=== PATIENT | female | born 1965 | race Caucasian/White ===

== ENCOUNTER 2018-02-10 12:54 | Outpatient (CLI) | payer OTHER ==
--- NOTE | 2018-02-18 15:37 | MMO ---
BILATERAL MAMMOGRAMS: HISTORY: Screening mammography. COMPARISON: Multiple exams back to 11/07/14. FINDINGS: Extremely dense fibroglandular tissue throughout each breast decreases sensitivity of exam. Bilatera l breast implants are stable. No new dominant mass or suspicious calcifications. The study was eval uated with the assistance of computer-aided detection. IMPRESSION: BI-RADS category 2. Benign findings. Suggest routine followup. BIRADS 2: Benign Finding(s) Routine annual screening mammography (for women over age 40) POS: [facility]
== END 2018-02-10 12:55 | disposition home or self-care (01) ==
LOC: SCSMAMMO 12:54
PROVIDERS: ATTEND Family Medicine
DX: Z12.31 Encounter for screening mammogram for malignant neoplasm of breast (principal)
CPT/HCPCS: 77067

== ENCOUNTER 2018-06-24 10:55 | Observation (INO) | payer OTHER ==
--- NOTE | 2018-06-24 11:46 | RAD ---
CHEST ONE VIEW: History: Chest pain Comparison: None. FINDINGS: Lungs are clear. No pneumothorax or effusion. Cardiac silhouette and mediastinal contour is within no rmal limits. IMPRESSION: No acute thoracic abnormality. POS: [facility]
[2018-06-24 12:02] LABS: #Basophils 0.1 thou/uL (0.0-0.2); #Lymphocytes 0.4 thou/uL (1.20-3.40); #Monocytes 0.3 thou/uL (0.11-0.59); #Neutrophils 3.7 thou/uL (1.40-6.50); %Basophils 1.9 % (0.0-1.0); %Eosinophils 0.9 % (0.0-10.0); %Lymphocytes 9.5 % (21.0-51.0); %Monocytes 6.1 % (0.0-10.0); %Neutrophils 81.6 % (42.0-75.0); Mean Corpuscular HGB CONC 34.3 g/dL (32.0-36.0); Mean Corpuscular Hemoglobin 30.7 pg (27.0-31.0); Mean Corpuscular Volume 89.7 fL (78.0-98.0); Mean Platelet Volume 7.1 fL (7.4-10.4); Platelet Count 205 thou/uL (130-400); RBC Distribution Width 12.1 % (11.5-14.5); Red Blood Cell (RBC) Count 4.88 mill/uL (4.20-5.40); White Blood Cell (WBC) Count 4.5 thou/uL (4.8-10.8)
[2018-06-24 12:27] LABS: ALT (SGPT) 12 U/L (8-55); AST (SGOT) 20 U/L (5-34); Albumin 4.8 g/dL (3.5-5.0); Alkaline Phosphatase 51 U/L (40-150); Anion Gap 11 mmol/L (10-20); BUN (Urea Nitrogen) 11 mg/dL (7.0-18.7); Bilirubin, Total 0.5 mg/dL (0.2-1.2); CK (CPK) 74 U/L (29-168); Calc. Creatinine Clearance 0 mL/min (70-130); Calcium 9.8 mg/dL (7.8-10.44); Carbon Dioxide 25 mmol/L (22-29); Chloride 106 mmol/L (98-107); Estimated GFR-MDRD 61; Globulin 3.2 g/dL (2.4-3.5); Glucose 79 mg/dL (70-105); Lipase 68 U/L (8-78); Potassium 3.9 mmol/L (3.5-5.1); Sodium 138 mmol/L (136-145)
[2018-06-24 12:35] LABS: CKMB 0.8 ng/mL (0-6.6); Troponin I Less than 0.010 ng/mL (< 0.028)
[2018-06-24 13:28] LABS: Bilirubin Negative (Negative); Blood, Urine Negative (Negative); Clarity CLEAR (Clear); Glucose, Urine (Dipstick) Negative (Negative); Leukocyte Negative (Negative); Nitrite Negative (Negative); Protein, Urine (Dipstick) Negative (Neg-Trace); Specific Gravity, Urine 1.004 (1.002-1.036); Urobilinogen 0.2 mg/dL (0.2-1.0); pH, Urine 7.5 (5.0-9.0)
[2018-06-24] MEDS ORDERED: Meclizine HCl 25 MG TAB ONE (13:46)
[2018-06-24] MEDS ORDERED: Ondansetron HCl/PF 4 MG/2 ML Vial ONE ×2 (14:08→15:26)
--- NOTE | 2018-06-24 15:21 | CT ---
CT OF THE BRAIN WITHOUT CONTRAST: Date: 06/24/18 INDICATION: Intermittent syncopal episodes. COMPARISON: None. FINDINGS: No acute infarct, hemorrhage, or hydrocephalus is present. Septum pellucidum and third ventricle are midline. The skull and extracranial soft tissues are unremarkable. IMPRESSION: No acute intracranial abnormality. POS: [facility]
--- NOTE | 2018-06-24 16:17 | HP ---
PRIMARY CARE PHYSICIAN: Dr. Katerina Caro. REASON FOR ADMISSION: Dizziness, vertigo. HISTORY OF PRESENT ILLNESS: A 52-year-old female who has underlying history of lupus. 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 The patient is recently prescribed methylprednisolone by [facility] physician because the patient was feeling lupus flare. She was lately feeling dizziness for t he last 3-4 days which was keep getting worse. She was feeling dizziness and nausea sensation whenev er she was changing her position of her head as well as whenever she was keeping her eyes open. She was feeling comfortable in eyes closed position. She denies any headaches. She denies any unsteadin ess. She denies any focal weakness, but she was feeling more tingling and numbness sensation on the left side. The patient also reported that she was feeling tingling and numbness sensation in both si sameer, but predominantly on the left side. She denies any loss of consciousness. She denies any fall. She denies any trauma. She denies any constipation, diarrhea, melena, hematochezia. She denies an y UTI symptoms. Per patient, her blood pressure was low and primary care physician was concerned about dehydration. PAST MEDICAL HISTORY: History of lupus. PAST SURGICAL HISTORY: Right below-knee amputation. PAST PSYCHIATRIC HISTORY: Reviewed and negative. SOCIAL HISTORY: The patient is , drinks alcohol socially. Denies any smoking, denies any oth er illicit drug abuse. FAMILY HISTORY: No strong family history of premature coronary artery disease, stroke or cancer. ALLERGIES: ANCEF, CODEINE, IV CONTRAST, MORPHINE, SULFA. CURRENT HOME MEDICATIONS: Xeljanz 5 mg daily, Medrol 8 mg daily. REVIEW OF SYSTEMS: Please see my HPI for pertinent positive and negative. All other review of syste ms reviewed and negative except as mentioned in the HPI. Constitutional: Weight loss or gain, ability to conduct usual activities. Skin: Rash, itching. Eyes: Double vision, pain. ENT/Mouth: Nose bleeding, neck stiffness, pain, tenderness. Cardiovascular: Palpitations, dyspnea on exertion, orthopnea. Respiratory: Shortness of breath, wheezing, cough, hemoptysis, fever or night sweats. Gastrointestinal: Poor appetite, abdominal pain, heartburn, nausea, vomiting, constipation, or diarrhea. Genitourinary: Urgency, frequency, dysuria, nocturia. Musculoskeletal: Pain, swelling. Neurologic/Psychiatric: Anxiety, depression. Allergy/Immunologic: Skin rash, bleeding tendency. EMERGENCY ROOM COURSE: The patient is given meclizine 25 mg and Zofran 4 mg. PHYSICAL EXAMINATION: VITAL SIGNS: On arrival, blood pressure 121/82, pulse 69, respiratory rate 16, temperature 98.1, sat uration 100% on room air, weight 50 kilograms. GENERAL: The patient is currently alert, awake, no obvious acute distress. HEAD: Normocephalic, atraumatic. EYES: Pupils round, reactive to light. Extraocular muscle intact. Horizontal nystagmus noted on th e left side. ENT: Oropharynx within normal limits. Moist mucous membranes. No oral lesion. No pharyngeal eryth bijan, no exudate. NECK: Supple, no JVD, no thyromegaly, no carotid bruit. LUNGS: Clear to auscultation without any rhonchi or rales. CARDIAC: S1, S2 regular. No murmur, no gallop, no rub. ABDOMEN: Soft, bowel sounds present, nontender, nondistended. No organomegaly, no mass, no suprapub ic tenderness. BACK: Unremarkable, no CVA tenderness. EXTREMITIES: Upper extremity: Passive movement of all joints are normal. Lower extremity: No belen a. Right below-knee amputation noted. NEUROLOGIC: Horizontal nystagmus noted on the left side, otherwise motor is 5/5 in all four limbs. Sensation bilaterally symmetrical. Reflexes symmetrical on the left side. Speech normal. SKIN: No skin rash. HEMATOLOGICAL: No lymphadenopathy. PSYCHIATRIC: Normal affect. SIGNIFICANT LABORATORY DATA: EKG showing normal sinus rhythm, left atrial enlargement. CT brain bas ed on my review, no acute intracranial process. CBC: WBC 4.5, hemoglobin 15.0, platelet 205. BMP: Sodium 138, potassium 3.9, chloride 106, carbon dioxide 25, anion gap 11, BUN 11, creatinine 0.97 an d glucose 79, calcium 9.8. LFT: AST 20, ALT 12, alkaline phosphatase 51, albumin 4.8, lipase 68. C ardiac enzymes: CK 374, CK-MB 0.8, troponin I less than 0.010. Urinalysis normal. ASSESSMENT AND PLAN: 1. Vertigo/dizziness. The patient description is a positional vertigo, most likely peripheral etiol ogy, but central etiology needs to be excluded given her history of lupus. We will treat her with An tivert 25 mg q.8 hourly scheduled. We will obtain MRI brain to rule out any intracranial process as well as we will also obtain echocardiography and carotid Doppler. We will also check orthostatic vit als and we will monitor on telemetry floor for any kind of arrhythmias. We will also give her NS at 75 mL per hour overnight. We will check random cortisol level as well given her history of lupus. 2. Lupus. The patient will continue her home medication for lupus Xeljanz 5 mg daily. 3. Deep venous thrombosis prophylaxis not needed because we are expecting discharge in 24 hours. 4. Gastrointestinal prophylaxis, Pepcid 20 mg p.o. b.i.d. 5. Code status: The patient is FULL CODE. Disposition plan based on clinical course, most likely the patient will be discharged home tomorrow i f all workup is negative. We will also get opinion from Neurology as well.
[2018-06-24 17:07] LABS: Troponin I Less than 0.010 ng/mL (< 0.028)
[2018-06-24] MEDS ORDERED: Ondansetron ODT 4 MG TAB PO PRN (17:44)
[2018-06-24] MEDS ORDERED: Acetaminophen 325 MG TAB PO PRN (17:44)
[2018-06-24] MEDS ORDERED: Milk Of Magnesia 30 ML UDCUP PO PRN (17:44)
[2018-06-24] MEDS ORDERED: Loratadine 10 MG TAB PO PRN (17:44)
[2018-06-24] MEDS ORDERED: Loperamide HCl 2 MG CAP PO PRN (17:44)
[2018-06-24] MEDS ORDERED: Zolpidem Tartrate 5 MG TAB PO PRN (17:44)
[2018-06-24] MEDS ORDERED: Chloraseptic Spray 180 ml Bottle PO PRN (17:44)
[2018-06-24] MEDS ORDERED: HYDROcodone/Acetaminophen 5/325 mg Tablet PO PRN (17:44)
[2018-06-24] MEDS ORDERED: Senokot 8.6 MG TAB PO PRN (17:44)
[2018-06-24] MEDS ORDERED: hydrALAZINE 20 MG/ML VIAL SLOW IVP PRN (17:44)
[2018-06-24] MEDS ORDERED: Artificial Tears 18 DROP/0.9 ML EA EYE PRN (17:44)
[2018-06-24] MEDS ORDERED: Sodium Chloride 0.65% Nasal 44 ML BOT EA NARE PRN (17:44)
[2018-06-24] MEDS ORDERED: Mag-Al 1200 mg/1200 mg/30 ML UDCUP PO PRN (17:44)
[2018-06-24] MEDS ORDERED: Diabetic Tussin 200 MG/10 ML UDCUP PO PRN (17:44)
[2018-06-24] MEDS ORDERED: Eucerin (Mineral Oil/Petrolatum,White) 30 gm Jar TOP PRN (17:44)
[2018-06-24 18:30] VITALS: BMI 19.8
[2018-06-24 19:25] LABS: Troponin I Less than 0.010 ng/mL (< 0.028)
[2018-06-24] MEDS: Meclizine HCl 25 MG TAB PO SCH (20:38)
[2018-06-24] MEDS: Sodium Chloride 0.9% 1,000 ML IV SCH (20:38)
[2018-06-24] MEDS: Famotidine 20 MG TAB PO SCH (20:38)
[2018-06-24 21:55] LABS: Troponin I Less than 0.010 ng/mL (< 0.028)
[2018-06-25 05:25] LABS: #Eosinphils 0.2 thou/uL (0.0-0.7); #Lymphocytes 0.7 thou/uL (1.20-3.40); #Monocytes 0.4 thou/uL (0.11-0.59); %Basophils 0.7 % (0.0-1.0); %Eosinophils 3.5 % (0.0-10.0); %Lymphocytes 16.4 % (21.0-51.0); %Monocytes 9.9 % (0.0-10.0); %Neutrophils 69.5 % (42.0-75.0); Hemoglobin 13.3 g/dL (12.0-16.0); Mean Corpuscular HGB CONC 35.1 g/dL (32.0-36.0); Mean Corpuscular Hemoglobin 31.5 pg (27.0-31.0); Mean Corpuscular Volume 89.7 fL (78.0-98.0); Mean Platelet Volume 7.9 fL (7.4-10.4); Platelet Count 163 thou/uL (130-400); RBC Distribution Width 12.1 % (11.5-14.5); Red Blood Cell (RBC) Count 4.22 mill/uL (4.20-5.40); White Blood Cell (WBC) Count 4.4 thou/uL (4.8-10.8)
[2018-06-25 05:36] LABS: Anion Gap 11 mmol/L (10-20); BUN (Urea Nitrogen) 10 mg/dL (7.0-18.7); Calc. Creatinine Clearance 65 mL/min (70-130); Calcium 8.7 mg/dL (7.8-10.44); Carbon Dioxide 24 mmol/L (22-29); Cardiac Risk 2.6 (Less than 4.5); Chloride 107 mmol/L (98-107); Cholesterol 149 mg/dl (< 200 Desired); Estimated GFR-MDRD 62; Glucose 73 mg/dL (70-105); HDL Cholesterol 58 mg/dL (>60 Neg Risk); LDL Cholesterol, Calculated 77 mg/dL; Potassium 3.6 mmol/L (3.5-5.1); Sodium 138 mmol/L (136-145); Triglycerides 69 mg/dL (Less than 150)
[2018-06-25] MEDS: Meclizine HCl 25 MG TAB PO SCH ×3 (05:48→21:22)
[2018-06-25] MEDS: Ondansetron HCl/PF 4 MG/2 ML Vial IVP PRN ×3 (08:28→20:06)
--- NOTE | 2018-06-25 09:14 | ULT ---
CAROTID DOPPLER: Ultrasound Doppler study is performed on the extracranial carotid arteries. Color Doppler with spect ral analysis and velocity recordings obtained. INDICATION: Syncope. FINDINGS: Ultrasound images show no significant plaque or abnormal thickening. Velocity recordings are normal bilaterally. There is no evidence of stenosis identified in either ex tracranial carotid system. The vertebral arteries show antegrade flow. IMPRESSION: 1. No evidence of echogenic plaque. 2. No evidence of stenosis. POS: [facility]
[2018-06-25] MEDS: Famotidine 20 MG TAB PO SCH ×2 (09:31→21:22)
[2018-06-25] MEDS ORDERED: Cosyntropin 250 MCG VIAL SLOW IVP SCH (10:00)
--- NOTE | 2018-06-25 10:57 | PDOC.PN ---
- Subjective Encounter Start Date: 06/25/18 Encounter Start Time: 08:20 -: old records requested/rev Patient seen and examined. No new complaints. No overnight events - Objective Resuscitation Status: Resuscitation Status FULL:Full Resuscitation MAR Reviewed: Yes Vital Signs & Weight: Vital Signs (12 hours) Temp Pulse Resp BP BP BP BP 06/25/18 08:43 97.8 F 66 16 127/66 125/73 125/73 06/25/18 08:00 97.8 F 66 16 06/25/18 03:26 97.8 F 56 L 16 115/58 L Pulse Ox 06/25/18 08:43 100 06/25/18 08:00 06/25/18 03:26 98 Weight Weight 130 lb 7 oz I&O: 06/24/18 06/25/18 06/26/18 06:59 06:59 06:59 Intake Total 916 Output Total 400 800 Balance 516 -800 Result Diagrams: 06/25/18 04:10 06/25/18 04:09 Radiology Reviewed by me: Yes EKG Reviewed by me: Yes Phys Exam - Physical Examination Constitutional: NAD HEENT: PERRLA, moist MMs, sclera anicteric Neck: no JVD, supple Respiratory: no wheezing, no rales, no rhonchi Cardiovascular: RRR, no significant murmur, no rub Gastrointestinal: soft, non-tender, no distention, positive bowel sounds Musculoskeletal: no edema, pulses present Neurological: non-focal, normal sensation, moves all 4 limbs Psychiatric: normal affect, A&O x 3 Skin: no rash, normal turgor Dx/Plan (1) Vertigo Code(s): R42 - DIZZINESS AND GIDDINESS Status: Acute (2) Lupus (systemic lupus erythematosus) Code(s): M32.9 - SYSTEMIC LUPUS ERYTHEMATOSUS, UNSPECIFIED Status: Chronic - Plan cont current plan of care * medication reviewed as below * symptomatic treatment * cosyntropin stim test * will discharge when all investigation done. * see my discharge summery Review of Systems - Review of Systems ENT: negative: Ear Pain, Ear Discharge, Nose Pain, Nose Discharge, Nose Congestion, Mouth Pain, Mouth Swelling, Throat Pain, Throat Swelling, Other Respiratory: negative: Cough, Dry, Shortness of Breath, Hemoptysis, SOB with Excertion, Pleuritic Pain, Sputum, Wheezing Cardiovascular: negative: chest pain, palpitations, orthopnea, paroxysmal nocturnal dyspnea, edema, light headedness, other Gastrointestinal: negative: Nausea, Vomiting, Abdominal Pain, Diarrhea, Constipation, Melena, Hematochezia, Other Genitourinary: negative: Dysuria, Frequency, Incontinence, Hematuria, Retention , Other Musculoskeletal: negative: Neck Pain, Shoulder Pain, Arm Pain, Back Pain, Hand Pain, Leg Pain, Foot Pain, Other Skin: negative: Rash, Lesions, Bonifacio, Bruising, Other - Medications/Allergies Allergies/Adverse Reactions: Allergies Allergy/AdvReac Type Severity Reaction Status Date / Time cefazolin [From [facility]] Allergy Verified 06/24/18 18:22 codeine Allergy Verified 06/24/18 18:22 iodine Allergy Verified 06/24/18 18:22 morphine Allergy Verified 06/24/18 18:21 Sulfa (Sulfonamide Allergy Verified 06/24/18 18:22 Antibiotics) Medications: Current Medications Acetaminophen (Tylenol) 650 mg PO Q4H PRN PRN Reason: Headache/Fever or Pain Hydrocodone Bitart/Acetaminophen (Hegins 5/325) 1 tab PO Q4H PRN PRN Reason: Moderate Pain (4-6) Al Hydroxide/Mg Hydroxide (Maalox) 30 ml PO Q6H PRN PRN Reason: Heartburn or Indigestion Artificial Tears (Tears Naturale) 0 drop EA EYE PRN PRN PRN Reason: Dry Eyes Aspirin (Aspirin Chewable) 81 mg PO DAILY [facility] Last Admin: 06/25/18 09:32 Dose: 81 mg Cosyntropin (Cortrosyn) 250 mcg SLOW IVP WILLCALL [facility] Last Admin: 06/25/18 10:47 Dose: 250 mcg Famotidine (Pepcid) 20 mg PO BID [facility] Last Admin: 06/25/18 09:31 Dose: 20 mg Guaifenesin (Robitussin Sf) 200 mg PO Q4H PRN PRN Reason: Cough Hydralazine HCl (Apresoline) 10 mg SLOW IVP Q4H PRN PRN Reason: Systolic BP > 180 Sodium Chloride (Normal Saline 0.9%) 1,000 mls @ 75 mls/hr IV .[id number] [facility] Last Admin: 06/24/18 20:38 Dose: 1,000 mls Loperamide HCl (Imodium) 2 mg PO PRN PRN PRN Reason: Diarrhea/Loose Stools Loratadine (Claritin) 10 mg PO DAILYPRN PRN PRN Reason: Sinus Symptoms Magnesium Hydroxide (Milk Of Magnesium) 30 ml PO DAILYPRN PRN PRN Reason: Constipation Meclizine HCl (Antivert) 25 mg PO Q8HR [facility] Last Admin: 06/25/18 05:48 Dose: 25 mg Mineral Oil/White Petrolatum (Eucerin Cream) 0 gm TOP BIDPRN PRN PRN Reason: Dry Skin Ondansetron HCl (Zofran Odt) 4 mg PO Q6H PRN PRN Reason: Nausea/Vomiting Ondansetron HCl (Zofran) 4 mg IVP Q6H PRN PRN Reason: Nausea/Vomiting Last Admin: 06/25/18 08:28 Dose: 4 mg Phenol (Chloraseptic [place] 180 Ml Bot) 0 ml PO PRN PRN PRN Reason: Sore Throat Senna (Senokot) 2 tab PO HSPRN PRN PRN Reason: Constipation Sodium Chloride (Alexander Nasal [place] 0.65%) 0 ml EA NARE QIDPRN PRN PRN Reason: Nasal Congestion Zolpidem Tartrate (Ambien) 5 mg PO HSPRN PRN PRN Reason: Insomnia
--- NOTE | 2018-06-25 11:04 | DIS ---
DATE OF ADMISSION: 06/24/2018 DATE OF DISCHARGE: 06/25/2018 PRIMARY CARE PHYSICIAN: Rocio Caro M.D. DISCHARGE DISPOSITION: Home. PRIMARY DISCHARGE DIAGNOSIS: Dizziness/vertigo. SECONDARY DISCHARGE DIAGNOSIS: Lupus. PRIMARY PROCEDURE/OPERATION: None. RADIOLOGICAL INVESTIGATION: Chest x-ray normal. CT brain normal. Carotid Doppler normal. SIGNIFICANT LABORATORY DATA: WBC 4.4, hemoglobin 13.3, platelet 163. Sodium 138, creatinine 0.96. Electrolytes normal. LFT normal. Cardiac enzymes negative x3. LDL 77. Cortisol 2.90. Lipase 68. Urinalysis normal. DISCHARGE MEDICATIONS: Cetirizine 10 mg p.o. at bedtime, Medrol 8 mg p.o. daily, 5 mg p.o. at bedtime, Antivert 25 mg q.8 hourly p.r.n., aspirin 81 mg p.o. daily, Pepcid 20 mg p.o. b.i.d. CONTRAINDICATIONS: None. CODE STATUS: FULL CODE. INPATIENT PRESIDENT AND CHIEF COMMERCIAL OFFICER: Neurology. TEST RESULTS PENDING ON DISCHARGE: ACTH stim test, MRI brain, echocardiography. DISCHARGE PLAN: Post hospital, patient is instructed to follow up with Rheumatology. The patient is also instructed to make appointment with Endocrinology for adrenal insufficiency evaluation and the patient is advised to follow up with primary care physician. HOSPITAL COURSE: A 52-year-old female who was admitted by me. Please see my HPI for further details . The patient was having dizziness for the last week or two. She was feeling in lying down position better, change in position was making her dizziness worse. Her presentation was atypical. Her elec trocardiogram was normal. CT brain was normal. Chest x-ray was normal. Routine blood test was also unremarkable. She had random cortisol level 2.90 and that is why we are doing ACTH stim test today to rule out adrenal insufficiency, but the patient is already on steroid therapy and she has underlyi ng lupus so secondary adrenal insufficiency is possible and that is why we advised this patient to fo llow up with Endocrinology as an outpatient basis for more evaluation if needed. We also treated sym ptomatically with Antivert while in hospital and advised to use as needed basis only for dizziness. For dizziness workup we did MRI brain, echocardiography, official report is pending by the time of di ctation. If those tests are normal, and if a ACTH stim test is normal, then we will consider dischar ging her later on today. The patient is checked for orthostatic vitals, which were normal. Telemetry remained unremarkable. The patient's symptomatology is improved. The patient is seen and examined at bedside today. PHYSICAL EXAMINATION: VITAL SIGNS: Currently, temperature 97.8, pulse 60, respiratory rate 16, saturation 100% on room air , blood pressure 127/66, weight 130 pounds. GENERAL: The patient is currently alert, awake, no obvious acute distress. HEAD: Normocephalic, atraumatic. EYES: Pupils round, reactive to light. Extraocular muscle intact. ENT: Oropharynx within normal limit. Moist mucous membranes. No oral lesion, no pharyngeal erythem a, no exudate. NECK: Supple, no JVD, no thyromegaly, no carotid bruit. No jugular venous distention. LUNGS: Clear to auscultation without any rhonchi or rales. CARDIAC: S1, S2 regular without any murmur. ABDOMEN: Soft and benign without any tenderness. EXTREMITIES: No edema. NEUROLOGIC: Nonfocal examination. No cerebellar signs. The patient most likely will be discharged home later on today with outpatient followup with Endocrin ology and primary care physician as well as primary telegraph inspector.
[2018-06-25] MEDS: Sodium Chloride 0.9% 1,000 ML IV SCH ×2 (12:30→21:23)
--- NOTE | 2018-06-25 13:24 | CON ---
DATE OF CONSULTATION: 06/25/2018 CHIEF COMPLAINT: Vertigo. HISTORY OF PRESENT ILLNESS: The patient is a 52-year-old right-handed lady, who sees her glass curvature gauger, Dr. Cohen, in [place], [place], for her lupus. The patient has been on methylprednisone. They are trying to switch her to cyclosporine, and she was also on Zeljanz in the past and she has reported dizziness for at least 2 weeks now and she woke up one day and she felt everything was spinning and she could not differentiate between sensation of spinning of self versus surroundings, and she has passed out 3 times so far in the last 12 days and it is described as a sensation of everything spinning and then she blacks out, and she is out for a few minutes and she finds herself on the floor. She has been uncomfortable with nausea and she has some headache on the left side of the head, and she also wondered whether she has any kind of sinus infection or ear infection. She has been having tingling and numbness mostly on the left side of the body, and there is no history of any recent infection. PAST MEDICAL HISTORY: She has had a history of lupus for a number of years and she has been treated for lupus in [place]. A recent history of hypotension. PAST SURGICAL HISTORY: She has had right leg amputation following an injury. She fell from a ladder and she had 12 surgeries on the right leg, and finally, they had to do a below-knee amputation, and she wears a prosthesis. FAMILY HISTORY: Positive for lupus in her mother, who is now in her 70s, and she has severe lupus. SOCIAL HISTORY: She lives with her . Nonsmoker. Alcohol, drinks socially. ALLERGIES: She is allergic to ANCEF, CODEINE, IV CONTRAST with IODINE, and MORPHINE and SULFA DRUGS. CURRENT MEDICATIONS: She is off of Zeljanz recently, and she is on methylprednisone. They are considering cyclosporine at this time. She had extensive workup with her primary glass curvature gauger as well. REVIEW OF SYSTEMS: Pulmonary: Negative for any shortness of breath or cough. Cardiovascular: Negative for any chest pains. Rheumatologic: Positive for joint pains and fatigue and lupus. Dermatologic: Negative for any skin lesions. Neurologic: Positive for tingling on the left side of the body and some headache and vertigo. ENT: Negative for any ear problems. LABORATORY WORKUP: White count 4.4, hemoglobin 13.3, hematocrit 37.8, platelets 163. Sodium 138, potassium 3.6, bicarbonate 107, BUN 11, creatinine 10, and cholesterol panel within normal limits. UA negative, and her CT scan of the head was negative with no acute intracranial abnormality and carotid Doppler is negative for any plaques. PHYSICAL EXAMINATION: VITAL SIGNS: Blood pressure 114/66, pulse is 65, temperature 97.6, respiratory rate 18. GENERAL APPEARANCE: A well-built, well-nourished lady, who seems to be uncomfortable, and even during my examination, she got up once to try to throw up and she also looked uncomfortable when she was looking, but following my finger during my extraocular muscle exam. ABDOMEN: Soft, nontender, no organomegaly noted. NEUROLOGICAL EXAM: Higher intellectual functions. Normal orientation to time, place, and person. Cranial nerves II-XII normal extraocular movements. Normal sensation of face bilaterally, normal visual prince by confrontation method, normal pupillary reaction to light and accomodation, no facaial asymmetry, normal hearing to finger rub bilaterally, normal elevation of palate, tongue midline no atrophy noted. Motor Examination: Bulk normal, tone normal, strength 5/5 in upper extremities in deltoid, biceps, triceps, wrist extension/ flexion, finger extension and flexion bilaterally. The right leg was not examined due to her amputation. Left leg exam is 5/5 in strength in iliopsoas, hamstrings, quadriceps, ankle dorsiflexion, and plantar flexion. Sensory: Normal to touch, pinprick, proprioception, vibration in both upper extremities and left lower extremity. Cerebellar: Normal [id number]. [id number] was not tested. Gait not tested. IMPRESSION: Patient is a 52-year-old lady with symptoms, which are suggestive of peripheral vertigo, which is rather severe, and there seems to be no pattern to this. However, she feels she has passed out on 3 occasions. Her neurological examination is essentially normal at this time. Due to her lupus, she may have underlying central nervous system vasculitis, which needs to be explored, but symptoms and examination is more suggestive of a peripheral vertigo such as acute vestibular neuronitis. Diagnosis is most consistent with peripheral vertigo. RECOMMENDATIONS: 1. MRI of the brain and I will review the scan. 2. Please consult ENT for any additional issues. 3. If meclizine is not helpful, we can start her on scopolamine patch. 4. I will follow up the patient with you. YOSSI
--- NOTE | 2018-06-25 16:51 | MRI ---
MRI BRAIN WITH AND WITHOUT IV CONTRAST: 06/25/18 HISTORY: Syncope, vertigo. Patient complains of severe vertigo with changing of position resulting in nausea. Patient is sensitive to light. FINDINGS: No signal abnormalities are seen throughout the brain. There is no evidence of an acute infarction. N o abnormal areas of enhancement are seen after the administration of intravenous contrast. The septum pellucidum and third ventricle are in the midline. The ventricular system is normal in size, shape a nd position. There is minimal mucosal thickening seen within the ethmoidal air cells. Remainder of the paranasal s inuses are clear. The orbits and skull base have a normal MRI appearance. IMPRESSION: No acute intracranial abnormalities demonstrated. POS: [facility]
[2018-06-26] MEDS: Sodium Chloride 0.9% 1,000 ML IV SCH (02:46)
[2018-06-26] MEDS: Meclizine HCl 25 MG TAB PO SCH (06:02)
[2018-06-26 08:08] VITALS: BP 117/63; TEMP 98.4
[2018-06-26] MEDS: Famotidine 20 MG TAB PO SCH (08:53)
--- NOTE | 2018-06-26 10:50 | PDOC.PN ---
- Subjective Encounter Start Date: 06/26/18 Encounter Start Time: 07:50 Patient seen and examined. No new complaints. No overnight events - Objective Resuscitation Status: Resuscitation Status FULL:Full Resuscitation MAR Reviewed: Yes Vital Signs & Weight: Vital Signs (12 hours) Temp Pulse Resp BP BP Pulse Ox 06/26/18 08:50 98.4 F 62 16 06/26/18 07:17 98.4 F 62 16 117/63 98 06/26/18 02:46 98.6 F 65 14 98/50 L 96 Weight Weight 132 lb 1.6 oz I&O: 06/25/18 06/26/18 06/27/18 06:59 06:59 06:59 Intake Total 916 1974 480 Output Total 400 1620 Balance 516 354 480 Result Diagrams: 06/25/18 04:10 06/25/18 04:09 Radiology Reviewed by me: Yes EKG Reviewed by me: Yes Phys Exam - Physical Examination Constitutional: NAD HEENT: PERRLA, moist MMs, sclera anicteric Neck: no JVD, supple Respiratory: no wheezing, no rales, no rhonchi Cardiovascular: RRR, no significant murmur, no rub Gastrointestinal: soft, non-tender, no distention, positive bowel sounds Musculoskeletal: no edema, pulses present Neurological: non-focal, normal sensation, moves all 4 limbs Psychiatric: normal affect, A&O x 3 Skin: no rash, normal turgor Dx/Plan (1) Vertigo Code(s): R42 - DIZZINESS AND GIDDINESS Status: Acute (2) Lupus (systemic lupus erythematosus) Code(s): M32.9 - SYSTEMIC LUPUS ERYTHEMATOSUS, UNSPECIFIED Status: Chronic - Plan cont current plan of care * medication reviewed as below * symptomatic treatment * see my discharge summery. Review of Systems - Review of Systems ENT: negative: Ear Pain, Ear Discharge, Nose Pain, Nose Discharge, Nose Congestion, Mouth Pain, Mouth Swelling, Throat Pain, Throat Swelling, Other Respiratory: negative: Cough, Dry, Shortness of Breath, Hemoptysis, SOB with Excertion, Pleuritic Pain, Sputum, Wheezing Cardiovascular: negative: chest pain, palpitations, orthopnea, paroxysmal nocturnal dyspnea, edema, light headedness, other Gastrointestinal: negative: Nausea, Vomiting, Abdominal Pain, Diarrhea, Constipation, Melena, Hematochezia, Other Genitourinary: negative: Dysuria, Frequency, Incontinence, Hematuria, Retention , Other Musculoskeletal: negative: Neck Pain, Shoulder Pain, Arm Pain, Back Pain, Hand Pain, Leg Pain, Foot Pain, Other - Medications/Allergies Allergies/Adverse Reactions: Allergies Allergy/AdvReac Type Severity Reaction Status Date / Time cefazolin [From [facility]] Allergy Verified 06/24/18 18:22 codeine Allergy Verified 06/24/18 18:22 iodine Allergy Verified 06/24/18 18:22 morphine Allergy Verified 06/24/18 18:21 Sulfa (Sulfonamide Allergy Verified 06/24/18 18:22 Antibiotics) Medications: Current Medications Acetaminophen (Tylenol) 650 mg PO Q4H PRN PRN Reason: Headache/Fever or Pain Last Admin: 06/25/18 17:52 Dose: 650 mg Hydrocodone Bitart/Acetaminophen ([place] 5/325) 1 tab PO Q4H PRN PRN Reason: Moderate Pain (4-6) Al Hydroxide/Mg Hydroxide (Maalox) 30 ml PO Q6H PRN PRN Reason: Heartburn or Indigestion Artificial Tears (Tears Naturale) 0 drop EA EYE PRN PRN PRN Reason: Dry Eyes Aspirin (Aspirin Chewable) 81 mg PO DAILY [facility] Last Admin: 06/26/18 08:54 Dose: 81 mg Cosyntropin (Cortrosyn) 250 mcg SLOW IVP [place]CALL [facility] Last Admin: 06/25/18 10:47 Dose: 250 mcg Famotidine (Pepcid) 20 mg PO BID [facility] Last Admin: 06/26/18 08:53 Dose: 20 mg Guaifenesin (Robitussin Sf) 200 mg PO Q4H PRN PRN Reason: Cough Hydralazine HCl (Apresoline) 10 mg SLOW IVP Q4H PRN PRN Reason: Systolic BP > 180 Loperamide HCl (Imodium) 2 mg PO PRN PRN PRN Reason: Diarrhea/Loose Stools Loratadine (Claritin) 10 mg PO DAILYPRN PRN PRN Reason: Sinus Symptoms Magnesium Hydroxide (Milk Of Magnesium) 30 ml PO DAILYPRN PRN PRN Reason: Constipation Meclizine HCl (Antivert) 25 mg PO Q8HR [facility] Last Admin: 06/26/18 06:02 Dose: 25 mg Mineral Oil/White Petrolatum (Eucerin Cream) 0 gm TOP BIDPRN PRN PRN Reason: Dry Skin Ondansetron HCl (Zofran Odt) 4 mg PO Q6H PRN PRN Reason: Nausea/Vomiting Ondansetron HCl (Zofran) 4 mg IVP Q6H PRN PRN Reason: Nausea/Vomiting Last Admin: 06/25/18 20:06 Dose: 4 mg Phenol (Chloraseptic [place] 180 Ml Bot) 0 ml PO PRN PRN PRN Reason: Sore Throat Senna (Senokot) 2 tab PO HSPRN PRN PRN Reason: Constipation Sodium Chloride ([place] Nasal [place] 0.65%) 0 ml EA NARE QIDPRN PRN PRN Reason: Nasal Congestion Zolpidem Tartrate (Ambien) 5 mg PO HSPRN PRN PRN Reason: Insomnia
--- NOTE | 2018-06-29 08:46 | ADD-DIS ---
ADDENDUM DATE OF DISCHARGE: 06/26/2018 Please see my discharge summary dictated yesterday. This patient was planned for discharge yesterday, but we were waiting for some test results. MRI bra in was done which came back completely normal. Echocardiography was also normal. Carotid Doppler is also normal. As we suspected some relative adrenal insufficiency, that is why we did ACTH stim test that has appropriate response. We advised this patient today that she needs to follow up with ENT nelson ling to rule out any ear related etiology for her dizziness. If not, then she needs to follow up [facility] for further evaluation of adrenal insufficiency. She is already on Medrol at home. She will continue all medication as prescribed. The patient is seen and examined at bedside today and I have explained all test results and plan of c are upon discharge. Her physical examination is completely normal. Her vitals are stable. For more detail please see my discharge summary dictated yesterday.
== END 2018-06-26 12:16 | disposition home or self-care (01) ==
LOC: ERS 10:55 → 2SW 15:04
PROVIDERS: ADMIT Internal Medicine; ATTEND Internal Medicine
DX: R42 Dizziness and giddiness (principal); M32.9 Systemic lupus erythematosus, unspecified; Z88.5 Allergy status to narcotic agent; Z88.0 Allergy status to penicillin; Z88.2 Allergy status to sulfonamides; Z91.041 Radiographic dye allergy status; Z79.899 Other long term (current) drug therapy
CPT/HCPCS: 36415; 70450; 70553; 71045; 80048; 80053; 80061; 80400; 81003; 82533; 82553; 83690; 84484; 85025; 93005; 93306; 93880; 96361; 96374; 96375; 96376; G0378; J0834; J2405

== ENCOUNTER 2019-03-08 10:11 | Outpatient (CLI) | payer OTHER ==
--- NOTE | 2019-03-08 22:35 | MMO ---
Bilateral MAMMO Bilat Screen [facility]. CLINICAL HISTORY: Patient is 53 years old and is seen for screening. The patient has the following family history of breast cancer: aunt, malignant (generic). The patient has no personal history of cancer. The patient has a history of Implants in 2000. There are bilateral retro-pectoral saline implants VIEWS: The views performed were: bilateral craniocaudal; bilateral mediolateral oblique; and bilateral Implant displaced. FILMS COMPARED: The present examination has been compared to prior imaging studies performed at [facility] on 02/10/2018, and at [facility] on 11/06/2014 and 02/27/2017. This study has been interpreted with the assistance of computer-aided detection. MAMMOGRAM FINDINGS: The breasts are heterogeneously dense, which could obscure a lesion on mammography. There are no suspicious masses, suspicious calcifications, or new areas of architectural distortion. There are no significant changes from the prior study. Normal implants are present.. IMPRESSION: THERE IS NO MAMMOGRAPHIC EVIDENCE OF MALIGNANCY. A ROUTINE FOLLOW-UP MAMMOGRAM IN 1 YEAR IS RECOMMENDED. ACR BI-RADS Category 1 - Negative MAMMOGRAPHY NOTE: 1. A negative mammogram report should not delay a biopsy if a dominant of clinically suspicious mass is present. 2. Approximately 10% to 15% of breast cancers are not detected by mammography. 3. Adenosis and dense breasts may obscure an underlying neoplasm.
== END 2019-03-08 10:12 | disposition home or self-care (01) ==
LOC: SCSMAMMO 10:11
PROVIDERS: ATTEND Family Medicine
DX: Z12.31 Encounter for screening mammogram for malignant neoplasm of breast (principal); Z80.3 Family history of malignant neoplasm of breast; Z98.82 Breast implant status
CPT/HCPCS: 77067